=== PATIENT | female | born 1940 | race African-American/Black ===

== ENCOUNTER 2018-03-06 20:09 | Observation (INO) | payer OTHER ==
--- NOTE | 2018-03-06 20:26 | PDOC ---
Rapid Medical Evaluation Chief Complaint: Urinary Problem Time Seen by Provider: 03/06/18 20:20 Medical Evaluation: Allergies Allergy/AdvReac Type Severity Reaction Status Date / Time codeine Allergy Intermediate elevated Verified 03/05/16 10:55 heart rate ampicillin Allergy Unknown "DON'T Verified 03/05/16 10:55 FEEL LIKE MYSELF" Vital Signs Temp Pulse Resp BP Pulse Ox 102.1 F H 100 H 18 140/64 99 03/06/18 20:17 03/06/18 20:17 03/06/18 20:17 03/06/18 20:17 03/06/18 20:17 03/06/18 20:20 I have performed a brief in-person evaluation of this patient. The patient presents with a chief complaint of: dysuria since last PM, sent from [facility]/ Pertinent physical exam findings: temp 102.2 -tachy with back pain - + [facility]lenol [facility] hr ago. I have ordered the following: UA, Ucx, sepsis labs The patient will proceed to the ED for further evaluation. 03/06/18 20:22 03/06/18 20:26 Discharge Disposition - Referrals Referrals: Karthik Quintero MD [Primary Care Provider] - - Patient Instructions - Post Discharge Activity
[2018-03-06 21:04] LABS: BASO % 0.4 % (0-2.0); EOS % 0.1 % (0-4.5); HEMATOCRIT 37.8 % (32.4-45.2); HEMOGLOBIN 12.8 GM/dL (10.7-15.3); LYMPH % 5.6 % (8-40); MCHC 33.9 g/dl (32.0-36.0); MEAN CELL VOLUME 88.6 fl (80-96); MEAN PLT VOLUME 8.6 fl (7.5-11.1); MONO % 8.2 % (3.8-10.2); NEUT % 85.7 % (42.8-82.8); PLATELET COUNT 177 K/MM3 (134-434); RBC 4.27 M/mm3 (3.60-5.2)
--- NOTE | 2018-03-06 21:07 | PDOC ---
History of Present Illness - General Chief Complaint: SIRS, Suspected/Possible Stated Complaint: FEVER Time Seen by Provider: 03/06/18 20:20 Past History - Past Medical History Allergies/Adverse Reactions: Allergies Allergy/AdvReac Type Severity Reaction Status Date / Time codeine Allergy Intermediate elevated Verified 03/06/18 20:20 heart rate ampicillin Allergy Unknown "DON'T Verified 03/06/18 20:20 FEEL LIKE MYSELF" Home Medications: Ambulatory Orders Alprazolam 0.25 mg PO TID 04/03/13 Amlodipine Besylate [Norvasc -] 10 mg PO HS 04/03/13 Glyburide 5 mg PO DAILY 04/03/13 Montelukast Na [Singulair -] 10 mg PO HS 04/03/13 metFORMIN HCL [Glucophage -] 500 mg PO BID 04/03/13 Metoprolol Tartrate [Lopressor -] 25 mg PO DAILY 07/17/14 Aspirin [[place] Aspirin EC] 81 mg PO DAILY 08/28/14 Acetaminophen [Tylenol -] 500 mg PO Q6H #100 tablet 03/05/16 Levofloxacin [Levaquin] 500 mg PO BID #14 tablet 03/05/16 Anemia: Yes Asthma: Yes Cancer: No Cardiac Disorders: Yes ("IRREGULAR HEARTBEAT AT TIMES") CVA: No COPD: No CHF: No Dementia: No Diabetes: Yes GI Disorders: No Disorders: No HTN: Yes Hypercholesterolemia: No Liver Disease: No Psychiatric Problems: Yes (anxiety) Seizures: No Thyroid Disease: No - Surgical History Abdominal Surgery: No Appendectomy: No Cardiac Surgery: No Cholecystectomy: Yes Lung Surgery: No Neurologic Surgery: No Orthopedic Surgery: No - Suicide/Smoking/Psychosocial Hx Smoking History: Never smoked Have you smoked in the past 12 months: No Number of Cigarettes Smoked Daily: 0 Cigars Per Day: 0 Hx Alcohol Use: No Drug/Substance Use Hx: No Substance Use Type: None *Physical Exam - Vital Signs Last Vital Signs Temp Pulse Resp BP Pulse Ox 102.1 F H 100 H 18 140/64 99 03/06/18 20:17 03/06/18 20:17 03/06/18 20:17 03/06/18 20:17 03/06/18 20:17 ED Treatment Course - LABORATORY CBC & Chemistry Diagram: 03/06/18 20:58 03/06/18 20:58 *DC/Admit/Observation/Transfer - Referrals Referrals: Karthik Quintero MD [Primary Care Provider] - - Patient Instructions - Post Discharge Activity
[2018-03-06 21:12] LABS: URINE APPEARANCE TURBID; URINE BILIRUBIN NEGATIVE (<2.0 mg/dL); URINE COLOR YELLOW; URINE GLUCOSE (UA) 1+ (NEGATIVE); URINE KETONE NEGATIVE (NEGATIVE); URINE LEUK ESTERASE 3+ (NEGATIVE); URINE NITRITE POSITIVE (NEGATIVE); URINE PROTEIN 2+ (NEGATIVE); URINE UROBILINOGEN NEGATIVE mg/dL (0.2-1.0)
--- NOTE | 2018-03-06 21:20 | PDOC ---
History of Present Illness - General Chief Complaint: SIRS, Suspected/Possible Stated Complaint: FEVER Time Seen by Provider: 03/06/18 20:20 History Source: Patient Exam Limitations: No Limitations - History of Present Illness Initial Comments: 03/06/18 22:57 78F with pmh of diabetes presenting to the ER for evaluation of fever and dysuria. Fever associated with foul smelling urine Was seen at [facility], found to have fever, given 1g tylenol. 12 WBC as well as UA with nitrities and leuks. Sent to ER Past History - Past Medical History Allergies/Adverse Reactions: Allergies Allergy/AdvReac Type Severity Reaction Status Date / Time codeine Allergy Intermediate elevated Verified 03/06/18 22:46 heart rate ampicillin Allergy Unknown "DON'T Verified 03/06/18 22:46 FEEL LIKE MYSELF" Home Medications: Ambulatory Orders Alprazolam 0.25 mg PO TID 04/03/13 Amlodipine Besylate [Norvasc -] 10 mg PO HS 04/03/13 Glyburide 5 mg PO DAILY 04/03/13 Montelukast Na [Singulair -] 10 mg PO HS 04/03/13 metFORMIN HCL [Glucophage -] 500 mg PO BID 04/03/13 Metoprolol Tartrate [Lopressor -] 25 mg PO DAILY 07/17/14 Aspirin [[place] Aspirin EC] 81 mg PO DAILY 08/28/14 Acetaminophen [Tylenol -] 500 mg PO Q6H #100 tablet 03/05/16 Levofloxacin [Levaquin] 500 mg PO BID #14 tablet 03/05/16 Anemia: Yes Asthma: Yes Cancer: No Cardiac Disorders: Yes ("IRREGULAR HEARTBEAT AT TIMES") CVA: No COPD: No CHF: No Dementia: No Diabetes: Yes GI Disorders: No Disorders: No HTN: Yes Hypercholesterolemia: No Liver Disease: No Psychiatric Problems: Yes (anxiety) Seizures: No Thyroid Disease: No - Surgical History Abdominal Surgery: No Appendectomy: No Cardiac Surgery: No Cholecystectomy: Yes Lung Surgery: No Neurologic Surgery: No Orthopedic Surgery: No - Suicide/Smoking/Psychosocial Hx Smoking History: Never smoked Have you smoked in the past 12 months: No Number of Cigarettes Smoked Daily: 0 Cigars Per Day: 0 Hx Alcohol Use: No Drug/Substance Use Hx: No Substance Use Type: None Review of Systems - Review of Systems Able to Perform ROS?: Yes Is the patient limited [place] proficient: No Constitutional: Yes: Fever. No: Malaise, Night Sweats, Weakness HEENTM: No: Symptoms Reported Respiratory: No: Symptoms reported Cardiac (ROS): No: Symptoms Reported ABD/GI: No: Symptoms Reported : Yes: Dysuria, Frequency. No: Hematuria, Incontinence, Pain, Urgency Musculoskeletal: No: Symptoms Reported Integumentary: No: Symptoms Reported Endocrine: No: Symptoms Reported All Other Systems: Reviewed and Negative *Physical Exam - Vital Signs Last Vital Signs Temp Pulse Resp BP Pulse Ox 102.1 F H 100 H 18 140/64 99 03/06/18 20:17 03/06/18 20:17 03/06/18 20:17 03/06/18 20:17 03/06/18 20:17 - Physical Exam General Appearance: Yes: Nourished, Appropriately Dressed. No: Apparent Distress HEENT: positive: EOMI, SOFÍA, Normal ENT Inspection Respiratory/Chest: positive: Lungs Clear, Normal Breath Sounds. negative: Chest Tender, Respiratory Distress Cardiovascular: positive: Regular Rhythm, S1, S2, Tachycardia Female Pelvic Exam: positive: normal external exam Gastrointestinal/Abdominal: positive: Normal Bowel Sounds, Flat, Soft. negative : Tender Musculoskeletal: positive: Normal Inspection. negative: CVA Tenderness Extremity: positive: Normal Capillary Refill, Normal Inspection, Normal Range of Motion Integumentary: positive: Normal Color, Dry, Warm Neurologic: positive: Fully Oriented, Alert, Normal Mood/Affect, Normal Response , Motor Strength 5/5 ED Treatment Course - LABORATORY CBC & Chemistry Diagram: 03/06/18 20:58 03/06/18 20:58 - ADDITIONAL ORDERS Additional order review: Laboratory Results 03/06/18 20:58 Urine Color Yellow Urine Appearance Turbid Urine pH 5.0 Ur Specific [place] 1.014 Urine Protein 2+ H Urine Glucose (UA) 1+ H Urine Ketones Negative Urine Blood 3+ H Urine Nitrite Positive Urine Bilirubin Negative Urine Urobilinogen Negative Ur Leukocyte Esterase 3+ H 03/06/18 20:58 RBC 4.27 MCV 88.6 MCHC 33.9 RDW 13.0 MPV 8.6 Neutrophils % 85.7 H Lymphocytes % 5.6 L D Monocytes % 8.2 Eosinophils % 0.1 D Basophils % 0.4 Medical Decision Making - Medical Decision Making 03/06/18 23:06 This is a UTI, complicated as evidenced by workup done by Urgent care in addition of persistent fever. Will repeat labs and get cultures before startinmg abx , fluids and tylenol. Will admit to obs *DC/Admit/Observation/Transfer Diagnosis at time of Disposition: Sepsis, UTI (urinary tract infection) - Discharge Dispostion Decision to Admit order: Yes - Referrals Referrals: Karthik Quintero MD [Primary Care Provider] - - Patient Instructions - Post Discharge Activity
[2018-03-06 21:38] LABS: EPI CELLS RARE /HPF (FEW); URINE MUCUS RARE
--- NOTE | 2018-03-06 21:40 | PDOC ---
Attending Attestation - Resident Resident Name: RedmondTavon - ED Attending Attestation I have performed the following: I have examined & evaluated the patient, The case was reviewed & discussed with the resident, I agree w/resident's findings & plan, Exceptions are as noted - HPI HPI: 03/06/18 21:36 78 yo F presenting to the ER for evaluation of fever Pt symptoms began the day prior to presentation today, she had generalized weakness Today, she noted fevers. Was seen at [facility], found to have Temp 102.9 Pt UA performed and was (+), Labs demonstrated WBC 12 Pt advised to come to the ER for evaluation - r/o Urosepsis - Physicial Exam PE: 03/06/18 23:24 GENERAL: The patient is in no acute distress, pleasant, A&Ox 3. NECK: Normal range of motion, supple LUNGS: Breath sounds equal, clear to auscultation bilaterally. HEART:Regular rate and rhythm, normal S1 and S2 without murmur, rub or gallop. ABDOMEN: Soft, nontender, normoactive bowel sounds. EXTREMITIES: Normal range of motion, no edema. NEUROLOGICAL: Cranial nerves II through XII grossly intact. Normal speech. No focal neurological deficits. MUSCULOSKELETAL: Back non-tender to palpation, no CVA tenderness SKIN: Warm, Dry, normal turgor, no rashes or lesions noted. - Medical Decision Making 03/06/18 23:25 Laboratory Tests 03/06/18 03/06/18 03/06/18 20:58 20:58 20:58 WBC 12.0 H Hgb 12.8 Hct 37.8 Plt Count 177 INR BUN 15 Creatinine 1.0 Urine Blood 3+ H Urine Nitrite Positive Ur Leukocyte Esterase 3+ H Urine WBC (Auto) 1946 Urine RBC (Auto) 110 03/06/18 20:58 WBC Hgb Hct Plt Count INR 1.09 BUN Creatinine Urine Blood Urine Nitrite Ur Leukocyte Esterase Urine WBC (Auto) Urine RBC (Auto) UTI with Fever Will give Ceftriaxone (pt has h/o allergy to Amoxicillin) Will hydrate Will admit Clinical impression: UTI, initial presentation
[2018-03-06] MEDS ORDERED: CEFTRIAXONE 1,000 MG in DEXTROSE 5%-WATER - 50 ML IVPB ONE (21:41)
[2018-03-06] MEDS ORDERED: SODIUM CHLORIDE 1,000 ML IV STA (21:41)
[2018-03-06 21:44] LABS: INR 1.09 (0.83-1.09); PROTHROMBIN TIME (PATIENT) 12.9 SEC (9.7-13.0)
[2018-03-06 21:57] LABS: ALBUMIN 3.7 g/dl (3.4-5.0); ALK PHOS 90 U/L (45-117); ANION GAP 11 MMOL/L (8-16); BLOOD UREA NITROGEN 15 mg/dL (7-18); CALCIUM 8.5 mg/dL (8.5-10.1); CHLORIDE 103 mmol/L (98-107); CO2 25 mmol/L (21-32); GLUCOSE,RANDOM 219 mg/dL (74-106); POTASSIUM 3.3 mmol/L (3.5-5.1); SGOT/AST 35 U/L (15-37); SGPT/ALT 33 U/L (13-61); SODIUM 139 mmol/L (136-145); TOT PROT 7.1 g/dl (6.4-8.2)
[2018-03-06] MEDS ORDERED: CEFTRIAXONE 1 GM/50 ML BAG ONE (22:34)
[2018-03-06] MEDS ORDERED: ACETAMINOPHEN 1000 MG/100 ML VIAL (NON FORMULARY) IVPB ONE (23:02)
[2018-03-06] MEDS ORDERED: ACETAMINOPHEN INJECTION 100 ML IVPB ONE (23:14)
[2018-03-06] MEDS ORDERED: IBUPROFEN 600 MG TABLET (FP) PO ONE ×2 (23:20→23:39)
[2018-03-07] MEDS ORDERED: POTASSIUM CHLORIDE TABS 20 MEQ TABLET.ER (FP) PO ONE (02:22)
--- NOTE | 2018-03-07 02:31 | HP ---
CHIEF COMPLAINT: Fever, Chills, Dysuria PCP: Dr. Marquez HISTORY OF PRESENT ILLNESS: This is a 78 y/o woman with a past medical history of HTN, HLD, Asthma, Anemia. Who presents to the ED with fever, chills, fatigue, dysuria, and foul smelling urine. Patient reports being seen at [facility] for same and was given Tylenol 1gm , sent here for eval. Patient denies cough, dizziness, SOB, CP, palpitations, AP , N/V/D, constipation ER course was notable for: (1) Sepsis Criteria Met III: T max 102.1, P 100, WBC 12,000, (2) UTI- +nitrates, +leukocyte esterase, +blood, +WBCs (3) K- 3.3, Recent Travel: none PAST MEDICAL HISTORY: See HPI PAST SURGICAL HISTORY: Social History: Smoking: never Alcohol: none Drugs: none Lives with family, retired Family History: Non-contributory Allergies codeine Allergy (Intermediate, Verified 03/06/18 22:46) elevated heart rate ampicillin Allergy (Unknown, Verified 03/06/18 22:46) "DON'T FEEL LIKE MYSELF" HOME MEDICATIONS: Home Medications Medication Instructions Recorded Alprazolam 0.25 mg PO TID PRN 04/03/13 Amlodipine Besylate [Norvasc -] 10 mg PO HS 04/03/13 Montelukast Na [Singulair -] 10 mg PO HS 04/03/13 metFORMIN HCL [Glucophage -] 500 mg PO BID 04/03/13 Metoprolol Tartrate [Lopressor -] 25 mg PO DAILY 07/17/14 Aspirin [[place] Aspirin EC] 81 mg PO DAILY 08/28/14 Acetaminophen [Tylenol -] 500 mg PO Q6H PRN 03/07/18 Sitagliptin Phosphate [Januvia] 25 mg PO DAILY 03/07/18 REVIEW OF SYSTEMS CONSTITUTIONAL: fever, chills, Absent: diaphoresis, generalized weakness, malaise, loss of appetite, weight change HEENT: Absent: rhinorrhea, nasal congestion, throat pain, throat swelling, difficulty swallowing, mouth swelling, ear pain, eye pain, visual changes CARDIOVASCULAR: Absent: chest pain, syncope, palpitations, irregular heart rate, lightheadedness , peripheral edema RESPIRATORY: Absent: cough, shortness of breath, dyspnea with exertion, orthopnea, wheezing, stridor, hemoptysis GASTROINTESTINAL: Absent: abdominal pain, abdominal distension, nausea, vomiting, diarrhea, constipation, melena, hematochezia GENITOURINARY: dysuria, Absent: frequency, urgency, hesitancy, hematuria, flank pain, genital pain MUSCULOSKELETAL: Absent: myalgia, arthralgia, joint swelling, back pain, neck pain SKIN: Absent: rash, itching, pallor HEMATOLOGIC/IMMUNOLOGIC: Absent: easy bleeding, easy bruising, lymphadenopathy, frequent infections ENDOCRINE: Absent: unexplained weight gain, unexplained weight loss, heat intolerance, cold intolerance NEUROLOGIC: Absent: headache, focal weakness or paresthesias, dizziness, unsteady gait, seizure, mental status changes, bladder or bowel incontinence PSYCHIATRIC: Absent: anxiety, depression, suicidal or homicidal ideation, hallucinations. PHYSICAL EXAMINATION Vital Signs - 24 hr 03/06/18 03/06/18 03/07/18 20:17 23:20 01:15 Temperature 102.1 F H 98.3 F 98.7 F Pulse Rate 100 H Pulse Rate [ 75 80 Right Radial] Respiratory 18 16 16 Rate Blood Pressure 140/64 Blood Pressure 138/61 133/58 L [Right Arm] O2 Sat by Pulse 99 99 98 Oximetry (%) 03/07/18 02:24 Temperature 98.2 F Pulse Rate 83 Pulse Rate [ Right Radial] Respiratory 18 Rate Blood Pressure 120/57 L Blood Pressure [Right Arm] O2 Sat by Pulse Oximetry (%) GENERAL: Awake, alert, and fully oriented, in no acute distress. HEAD: Normal with no signs of trauma. EYES: Pupils equal, round and reactive to light, extraocular movements intact, sclera anicteric, conjunctiva clear. No lid lag. EARS, NOSE, THROAT: Ears normal, nares patent, oropharynx clear without exudates. Dry mucous membranes. NECK: Normal range of motion, supple without lymphadenopathy, JVD, or masses. LUNGS: Breath sounds equal, clear to auscultation bilaterally. No wheezes, and no crackles. No accessory muscle use. HEART: Regular rate and rhythm, normal S1 and S2 without murmur, rub or gallop. ABDOMEN: Soft, nontender, not distended, normoactive bowel sounds, no guarding, no rebound, no masses. No hepatomegaly or splenomegaly. MUSCULOSKELETAL: Normal range of motion at all joints. No bony deformities or tenderness. No CVA tenderness. UPPER EXTREMITIES: 2+ pulses, warm, well-perfused. No cyanosis. No clubbing. No peripheral edema. LOWER EXTREMITIES: 2+ pulses, warm, well-perfused. No calf tenderness. No peripheral edema. NEUROLOGICAL: Cranial nerves II-XII intact. Normal speech. Gait not observed. PSYCHIATRIC: Cooperative. Good eye contact. Appropriate mood and affect. SKIN: Warm, dry, normal turgor, no rashes or lesions noted, normal capillary refill. Laboratory Results - last 24 hr 03/06/18 03/06/18 03/06/18 20:58 20:58 20:58 WBC 12.0 H RBC 4.27 Hgb 12.8 Hct 37.8 MCV 88.6 MCH 30.0 MCHC 33.9 RDW 13.0 Plt Count 177 MPV 8.6 Absolute Neuts (auto) 10.3 H Neutrophils % 85.7 H Lymphocytes % 5.6 L D Monocytes % 8.2 Eosinophils % 0.1 D Basophils % 0.4 Nucleated RBC % 0 PT with INR INR Sodium 139 Potassium 3.3 L Chloride 103 Carbon Dioxide 25 Anion Gap 11 BUN 15 Creatinine 1.0 Creat Clearance w eGFR 53.35 Random Glucose 219 H Lactic Acid Calcium 8.5 Total Bilirubin 1.0 AST 35 ALT 33 Alkaline Phosphatase 90 Total Protein 7.1 Albumin 3.7 Urine Color Yellow Urine Appearance Turbid Urine pH 5.0 Ur Specific [place] 1.014 Urine Protein 2+ H Urine Glucose (UA) 1+ H Urine Ketones Negative Urine Blood 3+ H Urine Nitrite Positive Urine Bilirubin Negative Urine Urobilinogen Negative Ur Leukocyte Esterase 3+ H Urine WBC (Auto) 1946 Urine RBC (Auto) 110 Ur Epithelial Cells Rare Urine Mucus Rare 03/06/18 03/06/18 20:58 20:58 WBC RBC Hgb Hct MCV MCH MCHC RDW Plt Count MPV Absolute Neuts (auto) Neutrophils % Lymphocytes % Monocytes % Eosinophils % Basophils % Nucleated RBC % PT with INR 12.90 INR 1.09 Sodium Potassium Chloride Carbon Dioxide Anion Gap BUN Creatinine Creat Clearance w eGFR Random Glucose Lactic Acid 1.6 Calcium Total Bilirubin AST ALT Alkaline Phosphatase Total Protein Albumin Urine Color Urine Appearance Urine pH Ur Specific [place] Urine Protein Urine Glucose (UA) Urine Ketones Urine Blood Urine Nitrite Urine Bilirubin Urine Urobilinogen Ur Leukocyte Esterase Urine WBC (Auto) Urine RBC (Auto) Ur Epithelial Cells Urine Mucus ASSESSMENT/PLAN: 78 y/o woman placed in Observation fot Complicated UTI for further evaluation of their emergent condition. Plan: FEN PO fluids as tolerated Repleted K, monitor BMP Low Na Diet DVT ppx OOB SCDs Consider AC if LOS > 48 hrs Dispo: Observation Problem List - Problem (1) UTI (urinary tract infection) Assessment/Plan: UA +nitrates, +3 blood, +3 leukocyte esterase, 1946 WBCs Urine culture-pending Given Ceftriaxone in ED Will start on Levaquin secondary to Ampicillin allergy Monitor vitals Monitor CBC, BMP Tylenol prn Code(s): N39.0 - URINARY TRACT INFECTION, SITE NOT SPECIFIED (2) HTN (hypertension) Assessment/Plan: controlled Monitor BP Continue home meds Code(s): I10 - ESSENTIAL (PRIMARY) HYPERTENSION (3) Asthma Assessment/Plan: well controlled Albuterol neb Peak Flow Code(s): J45.909 - UNSPECIFIED ASTHMA, UNCOMPLICATED Visit type - Emergency Visit Emergency Visit: Yes ED Registration Date: 03/06/18 Care time: The patient presented to the Emergency Department on the above date and was hospitalized for further evaluation of their emergent condition. - New Patient This patient is new to me today: Yes Date on this admission: 03/06/18 - Critical Care Critical Care patient: No
[2018-03-07] MEDS ORDERED: ACETAMINOPHEN 500 MG TABLET (FP) PO PRN (09:37)
[2018-03-07 10:23] LABS: BASO % 0.3 % (0-2.0); EOS % 0.2 % (0-4.5); HEMATOCRIT 35.5 % (32.4-45.2); HEMOGLOBIN 11.8 GM/dL (10.7-15.3); LYMPH % 8.5 % (8-40); MCH 29.5 pg (25.7-33.7); MCHC 33.2 g/dl (32.0-36.0); MEAN CELL VOLUME 88.9 fl (80-96); MEAN PLT VOLUME 8.1 fl (7.5-11.1); PLATELET COUNT 142 K/MM3 (134-434); RBC 3.99 M/mm3 (3.60-5.2); RDW 13.3 % (11.6-15.6); WHITE BLOOD COUNT 10.6 K/mm3 (4.0-10.0)
[2018-03-07 11:02] LABS: ANION GAP 9 MMOL/L (8-16); BLOOD UREA NITROGEN 15 mg/dL (7-18); CALCIUM 8.4 mg/dL (8.5-10.1); CHLORIDE 108 mmol/L (98-107); CO2 26 mmol/L (21-32); GLUCOSE,RANDOM 179 mg/dL (74-106); POTASSIUM 4.1 mmol/L (3.5-5.1); SODIUM 143 mmol/L (136-145)
--- NOTE | 2018-03-07 11:09 | CON.ID ---
Consult Consult Specialty:: infectious diseases Reason for Consultation:: fever uti - History of Present Illness Chief Complaint: fever weakness History of Present Illness: 78 y/o woman with a past medical history of HTN, HLD, Asthma, Anemia admitted with fever, chills, fatigue, dysuria, and foul smelling urine. Patient reports being seen at [facility] for same and was given Tylenol 1gm, sent here for eval. according to the patient she went for dinner and then she came back home and was not feeling well and she was sleeping then she took her temp and found to be 101 patient then went to urgent care and was directed here patient currently feeling a little better - History Source History Provided By: Patient Limitations to Obtaining History: No Limitations - Past Medical History ...: No - Alcohol/Substance Use Hx Alcohol Use: No - Smoking History Smoking history: Never smoked Have you smoked in the past 12 months: No Aproximately how many cigarettes per day: 0 Home Medications - Allergies Allergies/Adverse Reactions: Allergies Allergy/AdvReac Type Severity Reaction Status Date / Time codeine Allergy Intermediate elevated Verified 03/06/18 22:46 heart rate ampicillin Allergy Unknown "DON'T Verified 03/06/18 22:46 FEEL LIKE MYSELF" - Home Medications Home Medications: Ambulatory Orders Alprazolam 0.25 mg PO TID PRN 04/03/13 Amlodipine Besylate [Norvasc -] 10 mg PO HS 04/03/13 Montelukast Na [Singulair -] 10 mg PO HS 04/03/13 metFORMIN HCL [Glucophage -] 500 mg PO BID 04/03/13 Metoprolol Tartrate [Lopressor -] 25 mg PO DAILY 07/17/14 Aspirin [[place] Aspirin EC] 81 mg PO DAILY 08/28/14 Acetaminophen [Tylenol -] 500 mg PO Q6H PRN 03/07/18 Sitagliptin Phosphate [Januvia] 25 mg PO DAILY 03/07/18 Review of Systems - Review of Systems Constitutional: reports: Fever Eyes: reports: No Symptoms HENT: reports: No Symptoms Neck: reports: No Symptoms Cardiovascular: reports: No Symptoms Respiratory: reports: No Symptoms Gastrointestinal: reports: No Symptoms Genitourinary: reports: Other (foul smell) Musculoskeletal: reports: No Symptoms Integumentary: reports: No Symptoms Neurological: reports: No Symptoms Endocrine: reports: No Symptoms Hematology/Lymphatic: reports: No Symptoms Psychiatric: reports: No Symptoms Physical Exam Vital Signs: Vital Signs Temperature 98.4 F 03/07/18 06:00 Pulse Rate 80 03/07/18 06:00 Respiratory Rate 18 03/07/18 06:00 Blood Pressure 116/53 L 03/07/18 06:00 O2 Sat by Pulse Oximetry (%) 98 03/07/18 02:20 Constitutional: Yes: Well Nourished, No Distress, Calm Neck: Yes: Supple, Trachea Midline Cardiovascular: Yes: Regular Rate and Rhythm Respiratory: Yes: Regular, CTA Bilaterally Gastrointestinal: Yes: Normal Bowel Sounds, Soft Musculoskeletal: Yes: WNL Extremities: Yes: WNL Neurological: Yes: Alert, Oriented Psychiatric: Yes: Alert, Oriented Labs: CBC, BMP 03/07/18 10:05 03/07/18 10:05 Imaging - Results Chest X-ray: Report Reviewed, Image Reviewed Assessment/Plan patient coming with fever and foul smelling urine infection probably from uti all cx send Problem List - Problem (1) UTI (urinary tract infection) Code(s): N39.0 - URINARY TRACT INFECTION, SITE NOT SPECIFIED (2) HTN (hypertension) Code(s): I10 - ESSENTIAL (PRIMARY) HYPERTENSION (3) Asthma 4 fever plan i am going to restart ceftriaxone patient already got it in the ER and had no problems await for all cx reports rest as per the team
[2018-03-07] MEDS: ASPIRIN COATED 81 MG TABLET.EC PO SCH (11:45)
[2018-03-07] MEDS: METOPROLOL TARTRATE 25 MG TABLET (FP) PO SCH (11:45)
[2018-03-07] MEDS: metFORMIN HCL 500 MG TABLET (FP) PO SCH ×2 (11:45→17:36)
[2018-03-07] MEDS: sitaGLIPtin PHOSPHATE 25 MG TABLET (FP) PO SCH (11:46)
--- NOTE | 2018-03-07 12:25 | PN ---
Progress Note (short form) - Note Progress Note: events noted decreased appetite Vital Signs - 24 hr 03/06/18 03/06/18 03/07/18 20:17 23:20 01:15 Temperature 102.1 F H 98.3 F 98.7 F Pulse Rate 100 H Pulse Rate [ 75 80 Right Radial] Respiratory 18 16 16 Rate Blood Pressure 140/64 Blood Pressure 138/61 133/58 L [Right Arm] O2 Sat by Pulse 99 99 98 Oximetry (%) 03/07/18 03/07/18 03/07/18 02:20 02:24 06:00 Temperature 98.2 F 98.2 F 98.4 F Pulse Rate 83 83 80 Pulse Rate [ Right Radial] Respiratory 18 18 18 Rate Blood Pressure 120/57 L 120/57 L 116/53 L Blood Pressure [Right Arm] O2 Sat by Pulse 98 Oximetry (%) 03/07/18 09:41 Temperature 98.1 F Pulse Rate 78 Pulse Rate [ Right Radial] Respiratory 18 Rate Blood Pressure 123/59 L Blood Pressure [Right Arm] O2 Sat by Pulse Oximetry (%) Current Medications Generic Name Dose Route Start Last Admin Trade Name Freq PRN Reason Stop Dose Admin Acetaminophen 500 mg 03/07/18 09:37 Tylenol - PO Q6H PRN FEVER Amlodipine Besylate 10 mg 03/07/18 22:00 Norvasc - PO HS MARGARETH Aspirin 81 mg 03/07/18 10:00 03/07/18 11:45 Ecotrin - PO 81 mg DAILY MARGARETH Administration Ceftriaxone Sodium 1 gm/ 50 mls @ 100 mls/hr 03/07/18 22:00 Dextrose IVPB DAILY@2200 [facility] Protocol Metformin HCl 500 mg 03/07/18 10:00 03/07/18 11:45 Glucophage - PO 500 mg BIDI MARGARETH Administration Metoprolol Tartrate 25 mg 03/07/18 10:00 03/07/18 11:45 Lopressor - PO 25 mg DAILY MARGARETH Administration Montelukast Sodium 10 mg 03/07/18 22:00 Singulair - PO HS MARGARETH Sitagliptin Phosphate 25 mg 03/07/18 10:15 03/07/18 11:46 Januvia - PO 25 mg DAILY@0700 MARGARETH Administration Laboratory Results - last 24 hr 03/06/18 03/06/18 03/06/18 20:58 20:58 20:58 WBC 12.0 H RBC 4.27 Hgb 12.8 Hct 37.8 MCV 88.6 MCH 30.0 MCHC 33.9 RDW 13.0 Plt Count 177 MPV 8.6 Absolute Neuts (auto) 10.3 H Neutrophils % 85.7 H Lymphocytes % 5.6 L D Monocytes % 8.2 Eosinophils % 0.1 D Basophils % 0.4 Nucleated RBC % 0 PT with INR INR Sodium 139 Potassium 3.3 L Chloride 103 Carbon Dioxide 25 Anion Gap 11 BUN 15 Creatinine 1.0 Creat Clearance w eGFR 53.35 POC Glucometer Random Glucose 219 H Hemoglobin A1c % Lactic Acid Calcium 8.5 Total Bilirubin 1.0 AST 35 ALT 33 Alkaline Phosphatase 90 Total Protein 7.1 Albumin 3.7 Urine Color Yellow Urine Appearance Turbid Urine pH 5.0 Ur Specific [place] 1.014 Urine Protein 2+ H Urine Glucose (UA) 1+ H Urine Ketones Negative Urine Blood 3+ H Urine Nitrite Positive Urine Bilirubin Negative Urine Urobilinogen Negative Ur Leukocyte Esterase 3+ H Urine WBC (Auto) 1946 Urine RBC (Auto) 110 Ur Epithelial Cells Rare Urine Mucus Rare 03/06/18 03/06/18 03/07/18 20:58 20:58 02:46 WBC RBC Hgb Hct MCV MCH MCHC RDW Plt Count MPV Absolute Neuts (auto) Neutrophils % Lymphocytes % Monocytes % Eosinophils % Basophils % Nucleated RBC % PT with INR 12.90 INR 1.09 Sodium Potassium Chloride Carbon Dioxide Anion Gap BUN Creatinine Creat Clearance w eGFR POC Glucometer 127 Random Glucose Hemoglobin A1c % Lactic Acid 1.6 Calcium Total Bilirubin AST ALT Alkaline Phosphatase Total Protein Albumin Urine Color Urine Appearance Urine pH Ur Specific [place] Urine Protein Urine Glucose (UA) Urine Ketones Urine Blood Urine Nitrite Urine Bilirubin Urine Urobilinogen Ur Leukocyte Esterase Urine WBC (Auto) Urine RBC (Auto) Ur Epithelial Cells Urine Mucus 03/07/18 03/07/18 03/07/18 10:05 10:05 10:05 WBC 10.6 H RBC 3.99 Hgb 11.8 Hct 35.5 MCV 88.9 MCH 29.5 MCHC 33.2 RDW 13.3 Plt Count 142 MPV 8.1 Absolute Neuts (auto) 8.9 H Neutrophils % 84.0 H Lymphocytes % 8.5 D Monocytes % 7.0 Eosinophils % 0.2 D Basophils % 0.3 Nucleated RBC % 0 PT with INR INR Sodium 143 Potassium 4.1 Chloride 108 H Carbon Dioxide 26 Anion Gap 9 BUN 15 Creatinine 1.0 Creat Clearance w eGFR 53.35 POC Glucometer Random Glucose 179 H Hemoglobin A1c % 5.8 Lactic Acid Calcium 8.4 L Total Bilirubin AST ALT Alkaline Phosphatase Total Protein Albumin Urine Color Urine Appearance Urine pH Ur Specific [place] Urine Protein Urine Glucose (UA) Urine Ketones Urine Blood Urine Nitrite Urine Bilirubin Urine Urobilinogen Ur Leukocyte Esterase Urine WBC (Auto) Urine RBC (Auto) Ur Epithelial Cells Urine Mucus 03/07/18 11:43 WBC RBC Hgb Hct MCV MCH MCHC RDW Plt Count MPV Absolute Neuts (auto) Neutrophils % Lymphocytes % Monocytes % Eosinophils % Basophils % Nucleated RBC % PT with INR INR Sodium Potassium Chloride Carbon Dioxide Anion Gap BUN Creatinine Creat Clearance w eGFR POC Glucometer 148 Random Glucose Hemoglobin A1c % Lactic Acid Calcium Total Bilirubin AST ALT Alkaline Phosphatase Total Protein Albumin Urine Color Urine Appearance Urine pH Ur Specific [place] Urine Protein Urine Glucose (UA) Urine Ketones Urine Blood Urine Nitrite Urine Bilirubin Urine Urobilinogen Ur Leukocyte Esterase Urine WBC (Auto) Urine RBC (Auto) Ur Epithelial Cells Urine Mucus S1 S2 RRR Lungs clear Abd -soft, NT No edema PLAN pt is tolerating ceftriaxone po fluids Tylenol PRN pt may be OOB continue with meds Urine culture pending Spoke with ID Problem List - Problems (1) Asthma Code(s): J45.909 - UNSPECIFIED ASTHMA, UNCOMPLICATED (2) HTN (hypertension) Code(s): I10 - ESSENTIAL (PRIMARY) HYPERTENSION (3) UTI (urinary tract infection) Code(s): N39.0 - URINARY TRACT INFECTION, SITE NOT SPECIFIED
--- NOTE | 2018-03-07 16:27 | EKG ---
Test Reason : Blood Pressure : / mmHG Vent. Rate : 076 BPM Atrial Rate : 076 BPM P-R Int : 146 ms QRS Dur : 074 ms QT Int : 384 ms P-R-T Axes : 049 -10 027 degrees QTc Int : 432 ms NORMAL SINUS RHYTHM NONSPECIFIC ST AND T WAVE ABNORMALITY ABNORMAL ECG WHEN COMPARED WITH ECG OF 05-MAR-2016 13:28, NONSPECIFIC T WAVE ABNORMALITY NOW EVIDENT IN INFERIOR LEADS Confirmed by MD Yosi, Don ([id number]) on 03/07/2018 4:27:23 PM Referred By: Confirmed By:Don Deluca MD
[2018-03-07 17:07] VITALS: BMI 26.2
[2018-03-07] MEDS ORDERED: DEXTROSE 5%-WATER - 50 ML IVPB ONE (21:12)
[2018-03-07] MEDS ORDERED: cefTRIAXone SODIUM 1 GM VIAL ONE (21:12)
[2018-03-07] MEDS: CEFTRIAXONE 1 GM in DEXTROSE 5%-WATER - 50 ML IVPB SCH (21:45)
[2018-03-07] MEDS: amLODIPine BESYLATE 10 MG TABLET (FP) PO SCH (21:45)
[2018-03-07] MEDS: MONTELUKAST NA 10 MG TABLET PO SCH (21:45)
[2018-03-08 07:32] LABS: BASO % 0.2 % (0-2.0); EOS % 0.1 % (0-4.5); HEMATOCRIT 35.5 % (32.4-45.2); HEMOGLOBIN 11.9 GM/dL (10.7-15.3); LYMPH % 9.9 % (8-40); MCH 29.8 pg (25.7-33.7); MCHC 33.5 g/dl (32.0-36.0); MEAN PLT VOLUME 8.6 fl (7.5-11.1); MONO % 9.1 % (3.8-10.2); NEUT % 80.7 % (42.8-82.8); PLATELET COUNT 143 K/MM3 (134-434); RBC 3.99 M/mm3 (3.60-5.2); RDW 13.4 % (11.6-15.6); WHITE BLOOD COUNT 10.3 K/mm3 (4.0-10.0)
[2018-03-08] MEDS: metFORMIN HCL 500 MG TABLET (FP) PO SCH ×2 (08:45→18:04)
[2018-03-08] MEDS: sitaGLIPtin PHOSPHATE 25 MG TABLET (FP) PO SCH (08:46)
[2018-03-08 08:48] LABS: ANION GAP 10 MMOL/L (8-16); BLOOD UREA NITROGEN 14 mg/dL (7-18); CALCIUM 8.8 mg/dL (8.5-10.1); CHLORIDE 106 mmol/L (98-107); CO2 25 mmol/L (21-32); GLUCOSE,RANDOM 119 mg/dL (74-106); MAGNESIUM 1.9 mg/dL (1.8-2.4); PHOSPHOROUS 3.1 mg/dL (2.5-4.9); POTASSIUM 3.4 mmol/L (3.5-5.1); SODIUM 142 mmol/L (136-145)
[2018-03-08] MEDS: METOPROLOL TARTRATE 25 MG TABLET (FP) PO SCH (10:11)
[2018-03-08] MEDS: ASPIRIN COATED 81 MG TABLET.EC PO SCH (10:11)
--- NOTE | 2018-03-08 11:58 | PN ---
Progress Note (short form) - Note Progress Note: feeling better no distress no dysuria, foul smelling urine 03/07/18 03/07/18 03/07/18 13:17 18:00 21:00 Temperature 99 F 98.7 F 98.8 F Pulse Rate 74 86 82 Respiratory 18 20 18 Rate Blood Pressure 142/62 144/71 144/70 O2 Sat by Pulse 98 Oximetry (%) 03/08/18 03/08/18 02:00 06:00 Temperature 99.0 F Pulse Rate 83 Respiratory 18 18 Rate Blood Pressure 129/65 O2 Sat by Pulse 98 Oximetry (%) Current Medications Generic Name Dose Route Start Last Admin Trade Name Freq PRN Reason Stop Dose Admin Acetaminophen 500 mg 03/07/18 09:37 Tylenol - PO Q6H PRN FEVER Amlodipine Besylate 10 mg 03/07/18 22:00 03/07/18 21:45 Norvasc - PO 10 mg HS MARGARETH Administration Aspirin 81 mg 03/07/18 10:00 03/08/18 10:11 Ecotrin - PO 81 mg DAILY MARGARETH Administration Ceftriaxone Sodium 1 gm/ 50 mls @ 100 mls/hr 03/07/18 22:00 03/07/18 21:45 Dextrose IVPB 100 mls/hr DAILY@2200 MARGARETH Administration Protocol Metformin HCl 500 mg 03/07/18 10:00 03/08/18 08:45 Glucophage - PO 500 mg BIDI MARGARETH Administration Metoprolol Tartrate 25 mg 03/07/18 10:00 03/08/18 10:11 Lopressor - PO 25 mg DAILY MARGARETH Administration Montelukast Sodium 10 mg 03/07/18 22:00 03/07/18 21:45 Singulair - PO 10 mg HS MARGARETH Administration Sitagliptin Phosphate 25 mg 03/07/18 10:15 03/08/18 08:46 Januvia - PO 25 mg DAILY@0700 MARGARETH Administration Laboratory Results - last 24 hr 03/07/18 03/07/18 03/08/18 11:43 17:35 06:30 WBC 10.3 H RBC 3.99 Hgb 11.9 Hct 35.5 MCV 89.0 MCH 29.8 MCHC 33.5 RDW 13.4 Plt Count 143 MPV 8.6 Absolute Neuts (auto) 8.3 H Neutrophils % 80.7 Lymphocytes % 9.9 Monocytes % 9.1 Eosinophils % 0.1 Basophils % 0.2 Nucleated RBC % 0 Sodium Potassium Chloride Carbon Dioxide Anion Gap BUN Creatinine Creat Clearance w eGFR POC Glucometer 148 144 Random Glucose Calcium Phosphorus Magnesium 03/08/18 03/08/18 03/08/18 06:30 06:32 11:45 WBC RBC Hgb Hct MCV MCH MCHC RDW Plt Count MPV Absolute Neuts (auto) Neutrophils % Lymphocytes % Monocytes % Eosinophils % Basophils % Nucleated RBC % Sodium 142 Potassium 3.4 L Chloride 106 Carbon Dioxide 25 Anion Gap 10 BUN 14 Creatinine 1.0 Creat Clearance w eGFR 53.35 POC Glucometer 123 113 Random Glucose 119 H Calcium 8.8 Phosphorus 3.1 Magnesium 1.9 S1 S2 RRR Lungs clear Abd -soft, NT No edema PLAN pt is tolerating ceftriaxone po fluids Tylenol PRN pt may be OOB continue with meds Urine culture pending-- prelim noted possible dc tomorrow Problem List - Problems (1) Asthma Code(s): J45.909 - UNSPECIFIED ASTHMA, UNCOMPLICATED (2) HTN (hypertension) Code(s): I10 - ESSENTIAL (PRIMARY) HYPERTENSION (3) UTI (urinary tract infection) Code(s): N39.0 - URINARY TRACT INFECTION, SITE NOT SPECIFIED
--- NOTE | 2018-03-08 12:43 | PN ---
Progress Note, Physician - Current Medication List Current Medications: Active Medications Acetaminophen (Tylenol -) 500 mg PO Q6H PRN PRN Reason: FEVER Amlodipine Besylate (Norvasc -) 10 mg PO HS [facility] Last Admin: 03/07/18 21:45 Dose: 10 mg Aspirin (Ecotrin -) 81 mg PO DAILY [facility] Last Admin: 03/08/18 10:11 Dose: 81 mg Ceftriaxone Sodium 1 gm/ (Dextrose) 50 mls @ 100 mls/hr IVPB DAILY@2200 MARGARETH; Protocol Last Admin: 03/07/18 21:45 Dose: 100 mls/hr Metformin HCl (Glucophage -) 500 mg PO BIDI [facility] Last Admin: 03/08/18 08:45 Dose: 500 mg Metoprolol Tartrate (Lopressor -) 25 mg PO DAILY [facility] Last Admin: 03/08/18 10:11 Dose: 25 mg Montelukast Sodium (Singulair -) 10 mg PO HS [facility] Last Admin: 03/07/18 21:45 Dose: 10 mg Sitagliptin Phosphate (Januvia -) 25 mg PO DAILY@0700 [facility] Last Admin: 03/08/18 08:46 Dose: 25 mg - Objective Vital Signs: Vital Signs Temperature 99.0 F 03/08/18 06:00 Pulse Rate 84 03/08/18 12:00 Respiratory Rate 18 03/08/18 12:00 Blood Pressure 134/68 03/08/18 12:00 O2 Sat by Pulse Oximetry (%) 96 03/08/18 10:00 Labs: CBC, BMP 03/08/18 06:30 03/08/18 06:30 INR, PTT INR 1.09 (0.83-1.09) 03/06/18 20:58
[2018-03-08] MEDS ORDERED: DEXTROSE 5%-WATER - 50 ML IVPB ONE (21:46)
[2018-03-08] MEDS ORDERED: cefTRIAXone SODIUM 1 GM VIAL ONE (21:46)
[2018-03-08] MEDS: amLODIPine BESYLATE 10 MG TABLET (FP) PO SCH (22:01)
[2018-03-08] MEDS: MONTELUKAST NA 10 MG TABLET PO SCH (22:01)
[2018-03-08] MEDS: CEFTRIAXONE 1 GM in DEXTROSE 5%-WATER - 50 ML IVPB SCH (22:02)
[2018-03-09] MEDS ORDERED: RANITIDINE HCL 150 MG TABLET (FP) PO ONE (03:49)
[2018-03-09] MEDS: metFORMIN HCL 500 MG TABLET (FP) PO SCH (09:16)
[2018-03-09] MEDS: sitaGLIPtin PHOSPHATE 25 MG TABLET (FP) PO SCH (09:17)
[2018-03-09] MEDS: METOPROLOL TARTRATE 25 MG TABLET (FP) PO SCH (09:21)
[2018-03-09] MEDS: ASPIRIN COATED 81 MG TABLET.EC PO SCH (09:21)
[2018-03-09 10:46] VITALS: BP 130/62; PULSE 80; TEMP 98
--- NOTE | 2018-03-09 11:21 | DS ---
Physical Examination Vital Signs: Vital Signs Temperature 98.0 F 03/09/18 10:00 Pulse Rate 80 03/09/18 10:00 Respiratory Rate 20 03/09/18 10:00 Blood Pressure 130/62 03/09/18 10:00 O2 Sat by Pulse Oximetry (%) 96 03/08/18 10:00 Labs: CBC, BMP 03/08/18 06:30 03/08/18 06:30 Discharge Summary Reason For Visit: URINARY TRACT INFECTION,SEPSIS Current Active Problems Asthma (Acute) HTN (hypertension) (Acute) Sepsis (Acute) UTI (urinary tract infection) (Acute) - Instructions Referrals: Karthik Quintero MD [Primary Care Provider] - - Home Medications Comprehensive Discharge Medication List: Ambulatory Orders Alprazolam 0.25 mg PO TID PRN 04/03/13 Amlodipine Besylate [Norvasc -] 10 mg PO HS 04/03/13 Montelukast Na [Singulair -] 10 mg PO HS 04/03/13 metFORMIN HCL [Glucophage -] 500 mg PO BID 04/03/13 Metoprolol Tartrate [Lopressor -] 25 mg PO DAILY 07/17/14 Aspirin [[place] [facility]irin [facility]] 81 mg PO DAILY 08/28/14 Acetaminophen [Tylenol -] 500 mg PO Q6H PRN 03/07/18 Sitagliptin Phosphate [Januvia] 25 mg PO DAILY 03/07/18
--- NOTE | 2018-03-09 12:49 | PN ---
Progress Note, Physician History of Present Illness: patient doing well no issues - Current Medication List Current Medications: Active Medications Acetaminophen (Tylenol -) 500 mg PO Q6H PRN PRN Reason: FEVER Amlodipine Besylate (Norvasc -) 10 mg PO [facility] Last Admin: 03/08/18 22:01 Dose: 10 mg Aspirin (Ecotrin -) 81 mg PO DAILY [facility] Last Admin: 03/09/18 09:21 Dose: 81 mg Ceftriaxone Sodium 1 gm/ (Dextrose) 50 mls @ 100 mls/hr IVPB DAILY@2200 [facility]; Protocol Last Admin: 03/08/18 22:02 Dose: 100 mls/hr Metformin HCl (Glucophage -) 500 mg PO BIDI [facility] Last Admin: 03/09/18 09:16 Dose: 500 mg Metoprolol Tartrate (Lopressor -) 25 mg PO DAILY [facility] Last Admin: 03/09/18 09:21 Dose: 25 mg Montelukast Sodium (Singulair -) 10 mg PO [facility] Last Admin: 03/08/18 22:01 Dose: 10 mg Sitagliptin Phosphate (Januvia -) 25 mg PO DAILY@0700 [facility] Last Admin: 03/09/18 09:17 Dose: 25 mg - Objective Vital Signs: Vital Signs Temperature 98.0 F 03/09/18 10:00 Pulse Rate 80 03/09/18 10:00 Respiratory Rate 20 03/09/18 10:00 Blood Pressure 130/62 03/09/18 10:00 O2 Sat by Pulse Oximetry (%) 96 03/08/18 10:00 Constitutional: Yes: No Distress, Calm Neck: Yes: Supple, Trachea Midline Cardiovascular: Yes: Regular Rate and Rhythm Respiratory: Yes: Regular, CTA Bilaterally Gastrointestinal: Yes: Normal Bowel Sounds, Soft Musculoskeletal: Yes: WNL Extremities: Yes: WNL Labs: CBC, BMP 03/08/18 06:30 03/08/18 06:30 INR, PTT INR 1.09 (0.83-1.09) 03/06/18 20:58 Assessment/Plan Problem List - Problem (1) UTI (urinary tract infection) Code(s): N39.0 - URINARY TRACT INFECTION, SITE NOT SPECIFIED (2) HTN (hypertension) Code(s): I10 - ESSENTIAL (PRIMARY) HYPERTENSION (3) Asthma 4 fever plan can switch to augmentin po follow up cx
== END 2018-03-09 14:02 | disposition home or self-care (01) ==
LOC: JER 20:09 → JERBED 23:21 → J5S 03-07 02:06
PROVIDERS: ADMIT Internal Medicine; ATTEND Internal Medicine
PROC: 3E03329 Introduction of Other Anti-infective into Peripheral Vein, Percutaneous Approach (ICD-10-PCS; principal; 2018-03-06)
PROC: 3E0337Z Introduction of Electrolytic and Water Balance Substance into Peripheral Vein, Percutaneous Approach (ICD-10-PCS; 2018-03-06)
DX: N39.0 Urinary tract infection, site not specified (principal); I10 Essential (primary) hypertension; E11.9 Type 2 diabetes mellitus without complications; D64.9 Anemia, unspecified; J45.909 Unspecified asthma, uncomplicated; F41.9 Anxiety disorder, unspecified; E78.5 Hyperlipidemia, unspecified; Z79.82 Long term (current) use of aspirin; Z79.84 Long term (current) use of oral hypoglycemic drugs; Z88.1 Allergy status to other antibiotic agents; Z88.6 Allergy status to analgesic agent
CPT/HCPCS: 36415; 71045-TC-FY; 80048; 80053; 81003; 81015; 82962; 83036; 83605; 83735; 84100; 85025; 85610; 87040; 87086; 87186; 93005; 93010; 96365; 96375; 99285-25; G0378; J7030

== ENCOUNTER 2022-06-21 08:32 | Emergency (ER) | payer OTHER ==
[2022-06-21 08:49] VITALS: BP 137/71; PULSE 95; RESP 16; TEMP 97.9; BMI 26.4
[2022-06-21] MEDS ORDERED: LACTATED RINGERS SOLUTION 1000 ML INFUS.BAG IV ONE (09:26)
[2022-06-21 10:23] LABS: BASO % 0.2 % (0-2.0); EOS % 0.6 % (0-4.5); HEMOGLOBIN 12.8 GM/dL (10.7-15.3); LYMPH % 20.1 % (8-40); MCH 30.1 pg (25.7-33.7); MCHC 34.5 g/dl (32.0-36.0); MEAN CELL VOLUME 87.2 fl (80-96); MEAN PLT VOLUME 8.2 fl (7.5-11.1); MONO % 10.8 % (3.8-10.2); NEUT % 68.3 % (42.8-82.8); PLATELET COUNT 185 10^3/uL (134-434); RBC 4.24 M/mm3 (3.60-5.2); RDW 13.6 % (11.6-15.6); WHITE BLOOD COUNT 5.7 K/mm3 (4.0-10.0)
[2022-06-21 10:47] LABS: ALBUMIN 3.4 g/dl (3.4-5.0); BLOOD UREA NITROGEN 16.4 mg/dL (7-18); CALCIUM 8.7 mg/dL (8.5-10.1)
[2022-06-21 10:52] LABS: BILIRUBIN,TOTAL 0.6 mg/dL (0.2-1); TOT PROT 6.6 g/dl (6.4-8.2)
== END 2022-06-21 11:54 | disposition home or self-care (01) ==
LOC: JER 08:32
DX: R19.7 Diarrhea, unspecified (principal)
CPT/HCPCS: 0241U-QW; 36415; 80053; 82962; 85025; 99283-25